=== PATIENT | male | born 1945 | race Caucasian/White ===

== ENCOUNTER 2016-11-22 14:44 | Emergency (ER) | payer OTHER ==
[~2016-11-22] VITALS: Ht 179.1 cm; Wt 111.0 kg
[2016-11-22 14:46] VITALS: BP 136/75; PULSE 79; RESP 16; TEMP 98.3; O2SAT 95
[2016-11-22] MEDS ORDERED: METO50TA PO (15:04)
[2016-11-22] MEDS ORDERED: LISI20TA3 PO (15:04)
[2016-11-22] MEDS ORDERED: LIPI20TA PO (15:04)
[2016-11-22] MEDS ORDERED: TEST200I12 IM (15:05)
--- NOTE | 2016-11-22 15:11 | PD ---
HPI Chief Complaint: Abdominal Pain Time Seen by Provider: 15:02 Travel History International Travel<30 days: No Contact w/Intl Traveler<30days: No Traveled to known affect area: No History of Present Illness HPI Patient presents with several weeks of abdominal discomfort. Reports feeling bloated and mildly distended. Denies any nausea or vomiting. States he continues to have 1 bowel movement per day but he thinks that there are decreased in size. Denies any blood per stool. Denies any acute abdominal pain. Denies any new chest pain shortness of breath urinary or bowel symptoms. PFSH Past Medical History Hx Anticoagulant Therapy: Yes (BABY ASA) Cardiovascular Problems: Yes (HTN, CHOL) High Cholesterol: Yes Diabetes: Yes (PRE) Diminished Hearing: Yes Hypertension: Yes Immunizations Current: Yes Tetanus Vaccination: Unknown Influenza Vaccination: Yes Past Surgical History Surgical History: No Previous Surgery Social History Alcohol Use: Yes (4 OUNCES) Tobacco Use: No Substance Use: No Allergies-Medications (Allergen,Severity, Reaction): Coded Allergies: No Known Allergies (Unverified , 11/22/16) Reported Meds & Prescriptions Reported Meds & Active Scripts Active Reported Testosterone Cypionate Inj (Testosterone Cypionate) 200 Mg/Ml Inj 200 Mg IM Q21D Metoprolol Tartrate 50 Mg Tab 50 Mg PO BID Lipitor (Atorvastatin Calcium) 20 Mg Tab 20 Mg PO HS Lisinopril-Hctz 20-25 Mg Tab 1 Tab PO BID Review of Systems General / Constitutional: No: Fever Eyes: No: Visual changes HENT: No: Headaches Cardiovascular: No: Chest Pain or Discomfort Respiratory: No: Shortness of Breath Gastrointestinal: Positive: Changes in Bowel Habits, No: Abdominal Pain Genitourinary: No: Dysuria Musculoskeletal: No: Pain Skin: No Rash Neurologic: No: Weakness Psychiatric: No: Depression Endocrine: No: Polydipsia Hematologic/Lymphatic: No: Easy Bruising Physical Exam Narrative GENERAL: Well-nourished, well-developed patient. SKIN: Focused skin assessment warm/dry. HEAD: Normocephalic. EYES: No scleral icterus. No injection or drainage. NECK: Supple, trachea midline. No JVD or lymphadenopathy. CARDIOVASCULAR: Regular rate and rhythm without murmurs, gallops, or rubs. RESPIRATORY: Breath sounds equal bilaterally. No accessory muscle use. GASTROINTESTINAL: Abdomen soft, non-tender, nondistended. MUSCULOSKELETAL: No cyanosis, or edema. BACK: Nontender without obvious deformity. No CVA tenderness. Data Data Last Documented VS Vital Signs Date Time Temp Pulse Resp B/P Pulse Ox O2 Delivery O2 Flow Rate FiO2 11/22/16 14:46 98.3 79 16 136/[address] Abd/Pel W Iv Contrast(Rout) (11/22/16 15:02) Al-Mag Hy-Si 40-40-4 Mg/Ml Liq (Mag-Al P (11/22/16 15:15) Lidocaine 2% Viscous (Xylocaine 2% Visco (11/22/16 15:15) Basic Metabolic Panel (Bmp) (11/22/16 15:02) Labs Laboratory Tests Test 11/22/16 15:15 Sodium Level 141 MEQ/L Potassium Level 3.7 MEQ/L Chloride Level 103 MEQ/L Carbon Dioxide Level 28.5 MEQ/L Anion Gap 10 MEQ/L Blood Urea Nitrogen 15 MG/DL Creatinine 1.30 MG/DL Estimat Glomerular Filtration 55 ML/MIN Rate Random Glucose 94 MG/DL Calcium Level 9.3 MG/DL MDM Medical Decision Making Medical Screen Exam Complete: Yes Emergency Medical Condition: Yes Differential Diagnosis Colitis, small bowel obstruction, gastroenteritis, reflux, bowel ischemia Narrative Course Assessment and plan discussed with patient and at bedside Physician Communication Physician Communication Case discussed and care transferred to Paolo Stone MD Nov 22, 2016 15:11
[2016-11-22] MEDS ORDERED: ALUMINUM/MAGNESIUM/SIMETH 30 ML CUP PO ONE (15:15)
[2016-11-22] MEDS ORDERED: LIDOCAINE VISCOUS 2% SOLN 15 ML UDC PO ONE (15:15)
[2016-11-22 15:35] LABS: POTASSIUM 3.7 MEQ/L (3.5-5.1)
[2016-11-22 15:38] LABS: BICARBONATE 28.5 MEQ/L (21.0-32.0)
--- NOTE | 2016-11-22 16:13 | RADHPO ---
EXAM DATE/TIME: 11/22/2016 15:44 [facility] COMPARISON: No previous studies available for comparison. INDICATIONS : Epigastric pain, abdominal distension for 2 weeks. IV CONTRAST: 96 cc Omnipaque 350 (iohexol) IV ORAL CONTRAST: No oral contrast ingested. RADIATION DOSE: 20.30 CTDIvol (mGy) MEDICAL HISTORY : Hernia, hiatal. Hypertension. Cholelithiasis. SURGICAL HISTORY : None. ENCOUNTER: Initial ACUITY: 2 weeks PAIN SCALE: 6/10 LOCATION: Upper abdomen/epigastric. TECHNIQUE: Volumetric scanning of the abdomen and pelvis was performed. Using automated exposure control and ad justment of the mA and/or kV according to patient size, radiation dose was kept as low as reasonably achievable to obtain optimal diagnostic quality images. FINDINGS: LOWER LUNGS: Mild atelectasis right lung base. LIVER: Liver is severely fatty infiltrated. No focal hepatic lesions seen. No intrahepatic biliary distentio n. SPLEEN: Normal size without lesion. PANCREAS: Within normal limits. KIDNEYS: Normal in size and shape. There is no mass, stone or hydronephrosis. ADRENAL GLANDS: Within normal limits. VASCULAR: There is no aortic aneurysm. BOWEL/MESENTERY: The stomach, small bowel, and colon demonstrate no acute abnormality. There is no free intraperitone al air or fluid. Normal appendix. ABDOMINAL WALL: Within normal limits. RETROPERITONEUM: There is no lymphadenopathy. BLADDER: No wall thickening or mass. REPRODUCTIVE: Within normal limits. INGUINAL: Small fat-containing hernias on both sides. MUSCULOSKELETAL: Lumbar spine degenerative changes are noted. There are chronic L5 pars defects with at least grade 1 L5/S1 spondylolisthesis. CONCLUSION: 1. Severe fatty infiltration of the liver. 2. Small bilateral inguinal fat containing hernias. 3. Chronic L5 pars defects with at least grade 1 L5/S1 spondylolisthesis. 4. Mild right base atelectasis. Marcin Larry MD on November 22, 2016 at 16:08 Board Certified Radiologist. This report was verified electronically.
[2016-11-22 16:22] VITALS: BP 142/70
[2016-11-22] MEDS ORDERED: IOHEXOL 350 MG/ML 10 ML VIAL (for RAD DIAG) IV ONE (17:18)
== END 2016-11-22 16:34 | disposition home or self-care (01) ==
LOC: PHED 14:44
DX: R14.0 Abdominal distension (gaseous) (principal); I10 Essential (primary) hypertension; R73.03 Prediabetes; E78.00 Pure hypercholesterolemia, unspecified; H91.90 Unspecified hearing loss, unspecified ear; Z79.82 Long term (current) use of aspirin; Z86.79 Personal history of other diseases of the circulatory system
CPT/HCPCS: 74177; 80048; 99284; Q9967

== ENCOUNTER 2018-08-04 06:57 | Inpatient (IN) ==
[2018-08-04] MEDS ORDERED: Sodium Chlor 0.9% Inj 73.07 ML, Ropivacaine 0.5% PF Inj 24.63 ML, Ketorolac Inj 30 MG, ... P-ARTICULR ONE ×5 (07:24)
[2018-08-04] MEDS ORDERED: Dexamethasone Inj 20 MG/5 ML Vial IV.PUSH ONE (07:24)
[2018-08-04] MEDS ORDERED: Chlorhexidine 4% Topical 120 APPLIC/120 ML Bottle TOPICAL SCH (07:30)
[2018-08-04] MEDS ORDERED: Dexamethasone PF Inj 10 MG/ML Vial ONE (07:38)
[2018-08-04] MEDS ORDERED: ceFAZolin 2 GM Premix Inj 2 GM/50 ML PIGGYBACK IV.SIG SCH (08:00)
[2018-08-04] MEDS ORDERED: Vancomycin Inj 1,000 MG in Sodium Chlor 0.9% Inj 250 ML IV.SIG SCH (08:00)
[2018-08-04] MEDS ORDERED: SODIUM CHLOR 0.9% IV.SIG SCH ×2 (08:00→13:00)
[2018-08-04] MEDS ORDERED: TRANEXAMIC ACID IV.SIG SCH ×2 (08:00→13:00)
[2018-08-04] MEDS ORDERED: Metoprolol Tartrate 25 MG Tablet PO ONE (08:15)
[2018-08-04] MEDS ORDERED: Chlorhexidine Gluconate 2% 1 Pack (2 Cloths) TOPICAL ONE (08:15)
[2018-08-04] MEDS ORDERED: Sodium Chlor 0.9% Inj 500 ML IV.CONT ONE (08:15)
[2018-08-04] MEDS ORDERED: Ropivacaine 0.5% PF Inj 20 ML Vial ONE (09:13)
[2018-08-04] MEDS ORDERED: Lidocaine PF 1% Inj 5 ML Syringe OTHER ONE (09:53)
[2018-08-04] MEDS ORDERED: Phenylephrine/NS 1000 MCG/10ML Syringe IV.PUSH ONE (09:53)
[2018-08-04] MEDS ORDERED: Famotidine PF Inj 20 MG/2 ML Vial ONE (11:13)
[2018-08-04] MEDS ORDERED: Post-op Orders (for Pharmacy) OTHER STA ×2 (11:51)
[2018-08-04] MEDS ORDERED: Bisacodyl 10 MG Supp RECTAL PRN ×2 (11:51→11:56)
[2018-08-04] MEDS ORDERED: Aluminum/Magnesium/Simethacone Susp 30 ML UDC PO PRN ×2 (11:51→11:56)
[2018-08-04] MEDS ORDERED: Zolpidem Tartrate 5 MG Tablet PO PRN ×2 (11:51→21:00)
[2018-08-04] MEDS ORDERED: Morphine Inj 4 MG/ML Vial IV.PUSH PRN ×2 (11:51→11:56)
--- NOTE | 2018-08-04 11:55 | P.OP ---
- Preoperative Diagnosis (1) Osteoarthritis of right knee - Postoperative Diagnosis (1) Osteoarthritis of right knee Date of procedure: 08/04/18 Procedure: Right total knee arthroplasty [facility] Surgeon: Angelo Christianson MD Oceanology Teacher: BILL Miranda The surgical procedure was assisted by my Advanced Registered Nurse Practitioner. My DIET THERAPIST presence was necessary throughout this case for the manipulation and positioning of the surgical extremity. My DIET THERAPIST was assisting me throughout the duration of this procedure. The skill set of an Advance Registered Nurse Practitioner was medically necessary to complete this procedure. During the surgical case, the surgical supplies sterilizer was working at the back table and the Advance Registered Nurse Practitioner was directly assisting me. Operation and Findings: IMPLANTS: DePuy Attune: Patella: size 35. Femur, posterior stabilized size 7. Tibia, rotating platform size 6. Tibial insert, rotating platform, posterior stabilized size 5 mm thickness. ESTIMATED BLOOD LOSS: 50 cc TOURNIQUET TIME: 43 minutes at 250 mmHg pressure. JUSTIFICATION FOR PROCEDURE: The patient has end-stage osteoarthritis to the knee. There is an attached conservative measures pathway form in the chart that describes the nonoperative measures that were undertaken prior to consideration of surgical management. The patient understood the risks and benefits of surgical management. See my office notes for further details PROCEDURE: The patient was brought back to the operative theatre. Adequate anesthesia was obtained. The patient received intravenous Ancef and vancomycin. The lower extremity was prepped and draped in the usual sterile fashion.The leg was exsanguinated, the tourniquet was raised. A standard anterior incision was performed followed by medial parapatellar arthrotomy was performed. End-stage arthritis was identified. Osteotomy of the patella was performed. We drilled holes for the patella. We trialed the patella component. We placed an intramedullary guide into the distal femur. We ultimately resected 13 mm off of the distal femur in 5 degrees of valgus. The remnants of the ACL and PCL were resected. Osteotomy of the proximal tibia was performed, resecting 7 mm off of the medial side. This was done with 3 degrees of posterior slope using an extramedullary guide. The distal end of the guide was placed in the mid aspect of the ankle. The femur was sized, and four chamfer cuts were completed in 3 of external rotation. We then cut the central box in the distal femur to replace the PCL. We resected the remnants of the menisci and removed osteophytes off of the femur and tibia. We then trialed the knee. We punched the tibia for the keel, and then used standard technique to cement in components. Excess cement was removed. We trialed the knee again and the final polyethylene thickness was chosen to provide extension to 0 degrees, and flexion of 140 degrees to gravity. The ligaments were appropriately balanced. Lateral release was necessary to obtain excellent patellofemoral tracking. The tourniquet was released and adequate hemostasis was obtained. An intra- articular injection of a ropivacaine cocktail was injected. The posterior knee was inspected for excess cement, which was removed. The final polyethylene was put into position after thorough irrigation. We then closed the arthrotomy site with a #2 Stratafix, followed by fascia with #2-0 Stratafix, followed by skin with 2-0 Vicryl followed by Dermabond dressing. Postop plan is to weight-bear as tolerated. DVT prophylaxis will be performed with SCDs, CLOVIS acosta, early mobilization, and resumption of Eliquis (lower dose at 2.5 twice daily while in the hospital and then resumption of 5 mg twice daily after discharge).
[2018-08-04] MEDS ORDERED: Sod Chloride 0.9% Inj 1,000 ML IV.CONT SCH ×2 (12:00)
[2018-08-04] MEDS ORDERED: fentaNYL Citrate Inj 100 MCG/2 ML Ampul ONE (12:26)
[2018-08-04] MEDS ORDERED: *morphine SULFATE 4 MG/ML PERIprocedure ONLY ONE ×3 (12:27→12:51)
[2018-08-04] MEDS ORDERED: *Ondansetron Inj 4 MG/2 ML Vial PERIprocedural Use ONLY ONE (12:42)
[2018-08-04] MEDS ORDERED: Gabapentin 300 MG Capsule PO SCH (13:00)
[2018-08-04] MEDS ORDERED: *Meperidine Inj 25 MG/ML Vial PERIprocedural Use ONLY ONE (13:02)
--- NOTE | 2018-08-04 13:13 | XR ---
EXAM DATE: 08/04/2018 1:07 PM EST AGE/SEX: 73 years / Male INDICATIONS: Post-op total right knee arthroplasty. CLINICAL DATA: This is the patient's initial encounter. Patient reports that signs and symptoms have been present for 1 day and indicates a pain score of 4/10. MEDICAL/SURGICAL HISTORY: Hypertension. None. COMPARISON: No prior exams available for comparison. FINDINGS: AP and lateral views of the knee following arthroplasty reveals a prosthesis in anatomic alignment. F racture is not appreciated. Air is present in the joint space CONCLUSION: Status post total knee arthroplasty. Andraes Suárez MD FACR Electronically signed by: Andreas Suárez MD Board Certified Radiologist 08/04/2018 1:11 PM EST
[2018-08-04] MEDS ORDERED: *Promethazine Inj 25 MG/ML Vial PERIprocedural use ONLY ONE (13:21)
--- NOTE | 2018-08-04 13:55 | P.DCO ---
- Physical Therapy Physical Therapy: Gait training, Transfer training, bed to chair Knee: Total knee, Protocol: Right Right Lower Extremity Weight Bearing: Weight bearing as tolerated Right Lower Extremity Range of Motion: Active ROM - Nursing Dressing changes: Do not change dressing Additional instructions: First dressing change in the office - Case Management Consult Case Management Consult-Home Health: Yes - Certification Need for Home Health services: I have seen patient Jace Corado on 08/04/18. My clinical findings support the need for the requested home health care services because: Need for Home Health Services: Limited ability to care for self, High risk of falls Homebound Certification: I certify that my clinical findings support that this patient is homebound because: Homebound Certification: Post-op weakness, Unsteady gait/balance
[2018-08-04] MEDS ORDERED: *HYDROmorphone PF Inj 1 MG/ML Ampul PERIprocedural Use ONLY ONE (14:21)
[2018-08-04] MEDS: ceFAZolin Inj 1 GM in Sodium Chlor 0.9% Inj 100 ML IV.SIG SCH ×2 (15:35→22:02)
[2018-08-04] MEDS: Gabapentin 300 MG Capsule PO SCH ×2 (18:22→21:53)
[2018-08-04] MEDS ORDERED: Metoprolol Tartrate 50 MG Tablet PO SCH (21:00)
[2018-08-04] MEDS ORDERED: Doxazosin 4 MG Tablet PO SCH ×2 (21:00)
[2018-08-04] MEDS ORDERED: Multivitamin/Minerals Therapeutic Tablet PO SCH (21:00)
[2018-08-04] MEDS ORDERED: Senna/Docusate Sodium 8.6/50 MG Tablet PO SCH (21:00)
[2018-08-04] MEDS: Multivitamin/Minerals Therapeutic Tablet PO SCH (21:52)
[2018-08-04] MEDS: Senna/Docusate Sodium 8.6/50 MG Tablet PO SCH (21:53)
[2018-08-04] MEDS: Metoprolol Tartrate 50 MG Tablet PO SCH (21:54)
[2018-08-05 00:44] VITALS: RESP 18
[2018-08-05] MEDS: ceFAZolin Inj 1 GM in Sodium Chlor 0.9% Inj 100 ML IV.SIG SCH (04:49)
[2018-08-05 05:29] LABS: Hematocrit 35.9 % (39.0-51.0); Hemoglobin 12.2 gm/dL (13.0-17.0)
--- NOTE | 2018-08-05 07:25 | P.PNOP ---
Subjective Interval history: The patient is resting comfortably in bed in no acute distress. The patient reports minimal pain to the right knee. The patient is planning to be discharged to the [facility] on Thursday. Physical Exam Vital signs: Vital Signs 08/04/18 07:40 08/04/18 08:20 08/04/18 12:15 Temperature 98.1 F 98.1 F Pulse Rate 64 63 87 Respiratory Rate 16 20 Blood Pressure 117/80 99/58 L Pulse Oximetry 95 94 L 90 L 08/04/18 12:30 08/04/18 12:45 08/04/18 13:00 Temperature Pulse Rate 83 83 78 Respiratory Rate 20 20 18 Blood Pressure 150/69 H 136/63 134/65 Pulse Oximetry 94 L 94 L 95 08/04/18 13:19 08/04/18 14:15 08/04/18 14:55 Temperature 98.2 F Pulse Rate 79 77 88 Respiratory Rate 18 16 20 Blood Pressure 130/62 125/68 141/78 H Pulse Oximetry 97 98 98 08/04/18 15:28 08/04/18 19:22 08/04/18 23:18 Temperature 97.8 F 98.1 F Pulse Rate 81 85 90 Respiratory Rate 20 18 18 Blood Pressure 122/58 L 119/58 L 109/55 L Pulse Oximetry 96 96 94 L 08/05/18 04:49 Temperature 97.7 F Pulse Rate 74 Respiratory Rate 18 Blood Pressure 108/65 Pulse Oximetry 96 Intake & Output 08/04/18 08/05/18 08/05/18 18:59 06:59 18:59 Intake Total 2741.68 / 2741.68 460 / 460 Output Total 550 / 550 780 / 780 Balance 2191.68 / 2191.68 -320 / -320 Weight 108.4 kg 113.7 kg Intake: IV 1621.68 / 1621.68 100 / 100 LR 1000 mL Inj 1,000 ML @ 30 1000 / 1000 mls/hr IV.CONT .Q24H ONE Rx#: [id number] Cyklokapron Inj 1,084 MG In NS 221.68 / 221.68 Inj 100 ML @ 200 mls/hr IV.SIG [facility] Rx#:[id number] Vancomycin Inj 1,000 MG In NS 250 / 250 Inj 250 ML @ 250 mls/hr IV.SIG [facility] Rx#:[id number] Ancef 2 GM Premix Inj 2 gm In 50 / 50 50 ml @ 100 mls/hr IV.SIG [facility] Rx#:[id number] Ancef Inj 1 GM In NS Inj 100 ML 100 / 100 100 / 100 @ 200 mls/hr IV.SIG Q6H [facility] Rx #:[id number] Oral 120 / 120 360 / 360 Anesthesia Amount 1000 / 1000 Output: Urine 500 / 500 780 / 780 Estimated Blood Loss 50 / 50 Other: # Voids 1 Date of Last Bowel Movement 08/04/18 08/04/18 # Bowel Movements 0 Weight On Admission 108.4 kg Narrative: The patient's dressing is clean, dry, and intact. EHL/TA/G are intact. 2+ pedal pulse. The patient's calf is soft and nontender. Sensation is intact to light touch distally. Results - Labs CBC & Chem 7: 08/05/18 05:02 Laboratory Results - last 24 hr 08/04/18 08/05/18 07:54 05:02 Hgb 12.2 L Hct 35.9 L Blood Type B Positive Blood Type Recheck Required Antibody Screen Negative - Imaging Impressions Knee X-Ray 08/04/18 11:51 CONCLUSION: Status post total knee arthroplasty. Andreas Suárez MD FACR - Procedures Right total knee arthroplasty Assessment and Plan - Problem List (1) Status post total knee replacement, right Code(s): Z96.651 - Presence of right artificial knee joint Status: Acute (2) Osteoarthritis of right knee Code(s): M17.11 - Unilateral primary osteoarthritis, right knee Status: Acute - Assessment and Plan POD #1: [Right] total knee arthroplasty 1. Weightbearing as tolerated on [right] lower extremity. 2. The patient will resume Eliquis 2.5 mg twice daily while in the hospital and then transition back to his normal dose of Eliquis 5 mg twice daily at discharge for DVT prophylaxis. 3. Ice as needed for swelling. 4. Stable per ortho for discharge to [facility] on Thursday or Thursday depending upon his insurance. 5. The patient will follow up with Dr. Christianson and/or BILL Mcmahon as previously scheduled. 6. Pain management will include [place]. Prescriptions are on chart and [id number] is signed and in chart
[2018-08-05] MEDS ORDERED: Dexamethasone Inj 20 MG/5 ML Vial IV.PUSH ONE ×2 (08:00)
[2018-08-05] MEDS: Multivitamin/Minerals Therapeutic Tablet PO SCH (08:27)
[2018-08-05] MEDS: Senna/Docusate Sodium 8.6/50 MG Tablet PO SCH (08:27)
[2018-08-05] MEDS: Gabapentin 300 MG Capsule PO SCH ×2 (08:28→12:55)
[2018-08-05] MEDS: Metoprolol Tartrate 50 MG Tablet PO SCH (08:33)
[2018-08-05] MEDS ORDERED: Non-Formulary Drug (Lovastatin [Lovastatin] 10 MG) PO SCH (09:00)
[2018-08-05] MEDS ORDERED: Lisinopril 20 MG Tablet PO SCH (09:00)
[2018-08-05 12:57] VITALS: BP 126/58; PULSE 86; TEMP 99; O2SAT 95
--- NOTE | 2018-08-06 14:07 | P.DS ---
Date of admission: 08/04/18 06:57 Primary care physician: Conrado Long MD Attending physician on discharge: Angelo Christianson Anticipated date of discharge: 08/05/18 Brief History from admission: The patient was admitted to the hospital for severe osteoarthritis of the right knee to have a right total knee arthroplasty. DS: Diagnosis - Discharge Diagnosis (1) Status post total knee replacement, right Status: Acute (2) Osteoarthritis of right knee Status: Acute DS: Medications - Discharge Medications Prescriptions: hydrocodone-acetaminophen [Anita] 1 - 2 tab PO Q4-6H #50 tab DS: Summary Hospital Course: The patient was admitted to the hospital for severe osteoarthritis of the [right ] knee to have a [right] total knee arthroplasty. The patient's surgery went well with no complication. The patient is on a [regular] diet. The patient's DVT prophylaxis includes use of Eliquis 5 mg twice daily. The patient is weightbearing as tolerated. The patient was discharged [home with home health] and will follow up in the office with Dr. Christianson and/or BILL Mcmahon as previously scheduled. - Time Spent with Patient Total time spent providing and/or coordinating discharge services: Greater than 30 minutes - Quality: VTE Deep Vein Thrombosis/Pulmonary Embolism Present on Admission: No Exam Vital signs: Intake & Output 08/05/18 08/06/18 08/06/18 18:59 06:59 18:59 Other: Date of Last Bowel Movement 08/04/18 Narrative: The patient's dressing is clean, dry, and intact. EHL/TA/G are intact. 2+ pedal pulse. The patient's calf is soft and nontender. Sensation is intact to light touch distally. Results Procedures completed during hospitalization: Right total knee arthroplasty - Impressions ITS Impressions Knee X-Ray 08/04/18 11:51 CONCLUSION: Status post total knee arthroplasty. Andreas Suárez MD FACR Discharge Plan - Discharge Disposition Patient Disposition: 03 Discharge to SNF - Discharge Condition Condition: Stable - Discharge Order Discharge Orders: Discharge Order (Routine); Ordered 08/04/18 Ordered By: Kai Doran - Discharge Details Anticipated Discharge Date: 08/07/18 - Physicians Team Primary Care Provider: Conrado Long Attending Provider: Angelo Christianson Other Providers: [facility],Ag[facility] ; [employer] - Rxs /Orders / Referrals /Forms Prescriptions: New hydrocodone-acetaminophen [Anita] 5-325 mg Tablet 1 - 2 tab PO Q4-6H Qty: 50 RF: 0 Continue apixaban [Eliquis] 5 mg Tablet 5 mg PO BID doxazosin 4 mg Tablet 4 mg PO HS gabapentin 300 mg Capsule 300 mg PO QID lisinopril 40 mg Tablet 40 mg PO DAILY lovastatin 10 mg Tablet 10 mg PO DAILY metoprolol tartrate 50 mg Tablet 50 mg PO BID Ambulatory Orders / Order Sets / DME: Adjustable Commode 3-in-1 (1 each) (Routine) Location: Determined by Patient Ordered By: Kai Doran CPM - Continuous Passive Motion Machine (1 each) (Routine) Location: Determined by Patient Ordered By: Kai Doran Walker With Front Wheels (1 each) (Routine) Location: Determined by Patient Ordered By: Kai Doran Referrals: Angelo Christianson MD [Physician] - See Instructions (Follow-up in the office as previously scheduled with Dr. Christianson or Gerardo Doran, [facility] ) Conrado Long MD [Primary Care Provider] - See Instructions (FOLLOW UP AND MAKE AN APPOINTMENT IN ONE WEEK OF DISCHARGE. ) - Discharge Instructions Patient Printed Instructions: Hydrocodone/Acetaminophen (By mouth), Knee Replacement (DC) Additional Instructions: Take medications as prescribed. Rx for Anita 5/325mg (505) given at time of discharge. Follow up with orthopedic surgeon as discussed.
== END 2018-08-05 16:06 | DRG 470 ==
LOC: HSDC 06:57 → HSDI 06:57 → EDSTATUS 10:00 → N06 16:08
PROVIDERS: ADMIT Orthopaedic Surgery; ATTEND Orthopaedic Surgery
CPT/HCPCS: 73560; 85014; 85018; 86850; 86900; 86901; 94150; 97110; 97116; 97150; 97163; 97166; C1776; J0171; J0690; J0735; J1100; J1170; J1200; J1580; J1885; J2175; J2250; J2270; J2370; J2405; J2550; J2704; J2795; J3010; J3370; J7030; J7050; J7120; L1830